=== PATIENT | male | born 1985 | race Two or more races ===

== ENCOUNTER 2018-03-15 09:22 | Emergency (ER) | payer SELFPAY ==
[~2018-03-15] VITALS: Ht 182.9 cm; Wt 181.0 kg
[2018-03-15 09:35] VITALS: BP 163/97; Ht 182.9 cm; Wt 181.0 kg
== END 2018-03-15 10:35 | disposition home or self-care (01) ==
LOC: ED 09:22
DX: L03.012 Cellulitis of left finger (principal); E11.9 Type 2 diabetes mellitus without complications; I10 Essential (primary) hypertension; Z88.0 Allergy status to penicillin